=== PATIENT | female | born 1970 | race Two or more races ===

== ENCOUNTER 2016-09-01 20:54 | Emergency (ER) | payer MEDICAID ==
[~2016-09-01] VITALS: Ht 162.6 cm; Wt 59.0 kg
[2016-09-01 21:40] VITALS: BP 130/70
[2016-09-01 23:35] VITALS: BP 130/70
--- NOTE | 2016-09-02 01:46 | Emergency Room Report ---
History of Present Illness General Chief Complaint: General Complaint Source: Patient Present Illness HPI [id number] with 8 days right upper and lower extremity "sleepiness" Denies loss of motor strength No previous CVA, TIA or MS No known medical problems Denies DM history Denies work history, neuropathy history Allergies: Coded Allergies: No Known Allergies (Unverified , 09/01/16) Patient History Past Medical History: none Past Surgical History: none Pertinent Family History: none Social History: Denies: alcohol use, drug use, smoking Now: No Immunizations: UTD Reviewed Nursing Documentation: PMH: Agreed, PSxH: Agreed Nursing Documentation-PMH Past Medical History: No Stated History Review of Systems All Other Systems: negative except mentioned in HPI Physical Exam Vital Signs Date Time Temp Pulse Resp B/P Pulse Ox O2 Delivery O2 Flow Rate FiO2 09/01/16 21:35 98.4 66 18 130/70 98 Room Air Sp02 EP Interpretation: reviewed, normal General Appearance: normal inspection, well appearing, no apparent distress, alert Head: atraumatic ENT: normal ENT inspection, hearing grossly normal, normal voice Neck: normal inspection, full range of motion, supple, no bony tend Respiratory: normal inspection, lungs clear, normal breath sounds, no respiratory distress, no retraction, no wheezing Cardiovascular #1: regular rate, rhythm, no edema Gastrointestinal: normal inspection, normal bowel sounds, non tender, soft, no guarding, no hernia Genitourinary: no CVA tenderness Musculoskeletal: normal inspection, back normal, normal range of motion, Heber' s Sign negative Neurologic: normal inspection, alert, oriented x3, responsive, interventional nurse III-XII nml as tested, motor strength/tone normal, speech normal Psychiatric: normal inspection, judgement/insight normal, mood/affect normal Skin: normal inspection, normal color, no rash Medical Decision Making Diagnostic Impression: Primary Impression: Numbness and tingling ER Course VSS. Afebrile NIHSS 0 No appreciable motor or sensory loses on right upper or lower extremity on exam CT head negative for CVA, mass ECG is NSR, no ischemia Blood glucose normal Emergency causes of 8 days of right sided parathesia evaluated, ruled out ?Neuropathy Advised PMD followup for further workup Given well appearance, ease of ambulation, normal vitals, does not require additional lab, imaging at this point DC home EKG Diagnostic Results Rate: normal Rhythm: NSR ST Segments: no acute changes ASA given to the pt in ED: No Last Vital Signs Date Time Temp Pulse Resp B/P Pulse Ox O2 Delivery O2 Flow Rate FiO2 09/01/16 21:35 98.4 66 18 130/70 98 Room Air Status: improved Disposition: HOME, SELF-CARE Condition: Improved Referrals: NOT CHOSEN IPA/MD,REFERRING (PCP) Patient Instructions: Paresthesia, [id number] Additional Instructions: - CT head, ECG, and glucose level are normal - Please follow up with primary care doctor in 2-3 days to evaluate your right arm and leg numbness you've had for 8 days YVROSE MURILLO M.D. Sep 02, 2016 01:46
--- NOTE | 2016-09-02 11:49 | Diagnostic Imaging Report ---
Indications: Right arm weakness and syncope Technique: Spiral acquisitions obtained through the brain. Angled axial and coronal 5 x 5 mm slices were reconstructed. Total dose length product 1004 and 11 mGycm. CTDI vol(s) 70 mGy. Dose reduction achieved using automated exposure control Comparison: None Findings: No acute hemorrhage or edema. No mass effect or midline shift. Normal joseph-white differentiation. Visualized orbits are unremarkable. The sinuses are clear. Intact calvarium Impression: Negative This agrees with the preliminary interpretation provided overnight by [facility]. The CT scanner at [facility] is accredited by the [employer] and the scans are performed using protocols designed to limit radiation exposure to as low as reasonably achievable to attain images of sufficient resolution adequate for diagnostic evaluation.
== END 2016-09-01 23:35 | disposition home or self-care (01) ==
LOC: EMR 21:44
DX: R20.0 Anesthesia of skin (principal); R20.2 Paresthesia of skin; R55 Syncope and collapse; R53.1 Weakness
CPT/HCPCS: 70450; 82962; 93005; 99283